=== PATIENT | female | born 2000 | race Caucasian/White ===

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

== ENCOUNTER 2020-01-29 23:47 | Inpatient (IN) ==
[2020-01-30] MEDS ORDERED: Buffered Lidocaine 1% SYRIN 1 ml INTRADERM ONE (00:16)
[2020-01-30] MEDS ORDERED: Lactated Ringers 1000 ml BAG 1,000 ML IV ONE (00:16)
[2020-01-30 00:27] LABS: ABS Eosinophils 0.1 10^3/ul (0-0.6); ABS Lymphocytes 2.7 10^3/ul (1.0-4.8); ABS Monocytes 0.8 10^3/ul (0-0.8); Eosinophil % 0.6 %; Hematocrit 34 % (35-47); Hemoglobin 11.3 g/dL (12.0-16.0); Lymphocyte % 27.8 %; Mean Corpuscular HGB Conc 33 g/dL (31-36); Mean Corpuscular Hemoglobin 29 pg (27-31); Mean Corpuscular Volume 87 fL (80-97); Mean Platelet Volume 10.6 fL (7.4-10.4); Platelet Count 173 10^3/uL (150-450); Red Blood Count 3.89 10^6 /uL (3.70-4.87); Red Cell Distribution Width 15 % (10-15); White Blood Count 9.5 10^3/uL (3.5-10.8)
[2020-01-30] MEDS ORDERED: Morphine PF AMP (0.5MG/ML) 5 MG/10 ML AMP ONE (00:31)
[2020-01-30] MEDS ORDERED: ceFOXitin 2 GM IVPREMIX 2 GM/50 ML BAG ONE (00:46)
[2020-01-30] MEDS ORDERED: Oxytocin 10 UNITS/ML 1 ML VIAL ONE (00:49)
[2020-01-30] MEDS ORDERED: Lactated Ringers 1000 ml BAG 1,000 ML IV SCH (01:00)
[2020-01-30 01:03] LABS: Urine Benzodiazepine Screen None Detected (None Detect); Urine Cannabinoids Screen None Detected (None Detect); Urine Opiates Screen None Detected (None Detect)
[2020-01-30] MEDS ORDERED: Glycerin ADULT 2.4 gm SUPP PR PRN (01:30)
[2020-01-30] MEDS ORDERED: Dibucaine 1% OINT 28.35 GM TUBE PR PRN (01:30)
[2020-01-30] MEDS ORDERED: Witch Hazel PAD JAR TOPICAL PRN (01:30)
[2020-01-30] MEDS ORDERED: Acetaminophen IV 1 GM/100ML 1,000 MG/100 ML VIAL IVPB PRN (01:35)
[2020-01-30] MEDS ORDERED: Naloxone 0.4 mg VIAL 0.4 mg/ml 1 ml VIAL IV PRN ×2 (01:35)
[2020-01-30] MEDS ORDERED: Oxytocin in LR 20 UNITS/1,000 ML BAG IVPB SCH (02:00)
[2020-01-30] MEDS ORDERED: Ondansetron 4 mg VIAL 2 MG/ML 2 ml VIAL IV ONE (10:13)
[2020-01-31 06:09] LABS: ABS Basophils 0.1 10^3/ul (0-0.2); ABS Lymphocytes 2.2 10^3/ul (1.0-4.8); ABS Neutrophils 11.8 10^3/ul (1.5-7.7); Eosinophil % 0.2 %; Hematocrit 27 % (35-47); Hemoglobin 8.7 g/dL (12.0-16.0); Lymphocyte % 14.8 %; Mean Corpuscular HGB Conc 32 g/dL (31-36); Mean Corpuscular Hemoglobin 29 pg (27-31); Mean Corpuscular Volume 88 fL (80-97); Mean Platelet Volume 9.9 fL (7.4-10.4); Platelet Count 145 10^3/uL (150-450); Red Blood Count 3.05 10^6 /uL (3.70-4.87); Red Cell Distribution Width 16 % (10-15); White Blood Count 15.1 10^3/uL (3.5-10.8)
[2020-02-01 08:06] VITALS: BP 125/62
== END 2020-02-01 14:59 | disposition home or self-care (01) | DRG 540 ==
LOC: MCHOBOUT 23:47 → MCHOB 01-30 00:02
PROVIDERS: ADMIT Midwife; ATTEND Obstetrics & Gynecology

== ENCOUNTER 2021-09-16 02:25 | Inpatient (IN) ==
[2021-09-16] MEDS ORDERED: Oxytocin in LR 20 UNITS/1,000 ML BAG IVPB ONE (02:33)
[2021-09-16] MEDS ORDERED: Dibucaine 1% OINT 28.35 GM TUBE PR PRN (03:07)
[2021-09-16] MEDS ORDERED: Witch Hazel PAD JAR TOPICAL PRN (03:07)
[2021-09-16] MEDS ORDERED: Glycerin ADULT 2.4 gm SUPP PR PRN (03:07)
[2021-09-16] MEDS ORDERED: Oxytocin in LR 20 UNITS/1,000 ML BAG IVPB SCH (04:00)
[2021-09-16] MEDS ORDERED: Lactated Ringers 1000 ml BAG 1,000 ML IV SCH (04:00)
[2021-09-16 04:43] LABS: Urine Benzodiazepine Screen None Detected (None Detect); Urine Opiates Screen None Detected (None Detect)
[2021-09-17 08:43] LABS: ABS Lymphocytes 1.3 10^3/ul (1.0-4.8); ABS Monocytes 0.5 10^3/ul (0-0.8); ABS Neutrophils 7.1 10^3/ul (1.5-7.7); Eosinophil % 0.5 %; Hematocrit 34 % (35-47); Hemoglobin 11.1 g/dL (12.0-16.0); Lymphocyte % 14.7 %; Mean Corpuscular HGB Conc 32 g/dL (31-36); Mean Corpuscular Hemoglobin 28 pg (27-31); Mean Corpuscular Volume 86 fL (80-97); Mean Platelet Volume 9.7 fL (7.4-10.4); Nucleated Red Blood Cells % 0.1; Platelet Count 204 10^3/uL (150-450); Red Blood Count 3.95 10^6 /uL (3.70-4.87); Red Cell Distribution Width 14 % (10-15)
[2021-09-17 09:01] VITALS: BP 123/63
== END 2021-09-17 16:03 | disposition home or self-care (01) | DRG 560 ==
LOC: MCHOBOUT 02:25 → MCHOB 02:32
PROVIDERS: ADMIT Obstetrics & Gynecology; ATTEND Obstetrics & Gynecology